=== PATIENT | female | born 1975 | race Caucasian/White ===

== ENCOUNTER 2017-10-19 11:22 | Inpatient (IN) | payer OTHER, MEDICAID ==
[~2017-10-19] VITALS: Ht 157.5 cm; Wt 76.4 kg
[2017-10-24] VITALS (43 sets, daily range): BP systolic 82–153; BP diastolic 45–105; PULSE 59–96; TEMP 97.9–98.3
[2017-10-24] MEDS ORDERED: GLUCOPHAGE500 MG/TAB PO (08:24)
[2017-10-24] MEDS ORDERED: PRENATAL PLUS (08:24)
[2017-10-24] MEDS ORDERED: NOVOLOG 100U100 U/M1 SQ (08:25)
[2017-10-24 09:22] LABS: BASO % 0.2 % (0.0-2.0); EOS # 0.1 (0.0-0.7); EOS % 0.6 % (0-4.0); GRAN # 6.3 (1.4-6.5); GRAN % 72.4 % (42.2-75.2); LYMPH # 1.7 (1.2-3.4); LYMPH % 19.9 % (20.0-51.0); MEAN CELL VOLUME 85 fl (80.0-100.0); MEAN CORPUSCULAR HGB CONC 34 g/dl (33.0-37.0); MEAN PLATELET VOLUME 11.1 fl (7.4-10.4); MONO # 0.5 (0.1-0.6); MONO % 5.7 % (1.7-9.3); PLATELET COUNT 228 K/mm3 (130-400)
[2017-10-24 09:32] LABS: HEMATOCRIT 32.4 % (37.0-47.0); MEAN CORPUSCULAR HEMOGLOBIN 29 pg (27.0-31.0)
[2017-10-25 07:30] VITALS: BP 136/74; BP 96/53; PULSE 71; PULSE 85; TEMP 97.3; TEMP 98
[2017-10-25] MEDS ORDERED: PERCOCET 325 MG1 TA2 PO (08:59)
[2017-10-25] MEDS ORDERED: MOTRIN 800800 MG/TAB PO (08:59)
[2017-10-25 16:20] VITALS: BP 115/87; PULSE 81; TEMP 97.4
[2017-10-25 21:30] VITALS: BP 122/86; PULSE 75; TEMP 98
[2017-10-26 09:30] VITALS: BP 118/82; PULSE 114; TEMP 98
== END 2017-10-26 13:15 | disposition home or self-care (01) | DRG 775 ==
LOC: LDR 10-24 07:17 → OB 10-24 07:41 → LDR 10-24 07:41 → OB 10-24 19:40
PROVIDERS: Obstetrics & Gynecology
PROC: 10E0XZZ Delivery of Products of Conception, External Approach (ICD-10-PCS; principal; 2017-10-24)
PROC: 3E033VJ Introduction of Other Hormone into Peripheral Vein, Percutaneous Approach (ICD-10-PCS; 2017-10-24)
DX: O24.424 Gestational diabetes mellitus in childbirth, insulin controlled (principal); O26.843 Uterine size-date discrepancy, third trimester; O99.824 Streptococcus B carrier state complicating childbirth; O69.81X0 Labor and delivery complicated by cord around neck, without compression, not applicable or unspecified; O34.211 Maternal care for low transverse scar from previous cesarean delivery; N85.8 Other specified noninflammatory disorders of uterus; Z3A.38 38 weeks gestation of pregnancy; Z37.0 Single live birth
CPT/HCPCS: J2540; J2590; J7030